=== PATIENT | male | born 1945 ===

== ENCOUNTER → 2023-05-24 11:35 | Outpatient (CLI) | payer BC, SELFPAY ==
--- NOTE | 2023-05-24 12:53 | DI.MRI.S_ITS ---
PROCEDURE: MR LUMBAR SPINE WO CON INDICATIONS: Radiculopathy, lumbar region TECHNIQUE: Noncontrast sagittal T1 spin echo and T2 fast echo, sagittal STIR, and T2 fast spin echo through the lumbar spine. In cases with scoliosis, additional coronal T2 fast spin echo may be performed. COMPARISON: None. FINDINGS: Image quality: Excellent. Alignment and Curvature: Slight leftward curvature of the lumbar spine. Bone Marrow: Marrow is of normal overall signal. No acute vertebral body compression fractures. Spinal Cord: Conus medullaris terminates at the L1-2 level. Visualized cord demonstrates normal signal and size. Paraspinous Soft Tissues: No paravertebral masses. T12-L1: Normal appearance. L1-L2: Broad-based disc bulge. Mild facet arthrosis. Mild bilateral neural foraminal narrowing. Disc desiccation. L2-L3: Disc desiccation. Broad-based disc bulge. Mild facet hypertrophy. Minimal left neural foraminal narrowing. L3-L4: Asymmetric left subarticular to extraforaminal disc bulge. Moderate to severe disc height loss. Severe right and mild left neural foraminal narrowing. Mild ligamentum flavum hypertrophy. L4-L5: Moderate disc height loss. Ligamentum flavum hypertrophy. Mild to moderate right and moderate to severe left neural foraminal narrowing. L5-S1: Disc desiccation. Broad-based disc bulge. Mild to moderate right and moderate left neural foraminal narrowing. IMPRESSION: Multilevel degenerative disc disease, resulting in predominantly neural foraminal narrowing. This is most prominent at L3-4 with severe right and mild left neural foraminal narrowing, and L4-5 with mild to moderate right and moderate to severe left neural foraminal narrowing. Dictated by: Francisco Frye M.D. on 05/24/2023 at 14:29 Approved by: Francisco Frye M.D. on 05/24/2023 at 14:34
== END ==
PROVIDERS: PCP Family Medicine; Referring Provider Physical Medicine & Rehabilitation Pain Medicine; Visit Provider Physical Medicine & Rehabilitation Pain Medicine
DX: M51.16 Intervertebral disc disorders with radiculopathy, lumbar region (principal); M48.061 Spinal stenosis, lumbar region without neurogenic claudication
CPT/HCPCS: 72148